=== PATIENT | male | born 1965 | race Caucasian/White ===

== ENCOUNTER → 2016-12-02 | Outpatient (CLI) | payer BC ==
[2014-06-02 20:01] VITALS: BP 141/89
--- NOTE | 2016-12-02 11:21 | RAD ---
Scrotal ultrasound, 12/02/2016: History: Right testicular swelling The right testicle measures 4.5 x 3.4 x 2.9 cm while the left testicle measures 5.0 x 2.9 x 2.4 cm. No testicular mass is seen. There is symmetric blood flow in the testicles. No epididymal abnormality is detected. There is a large right-sided hydrocele. It contains echogenic debris as well as septations. Only a small amount of fluid is present in the left scrotal sac. IMPRESSION: 1. No testicular abnormality is detected. 2. Large septated right hydrocele.
== END | disposition home or self-care (01) ==
LOC: US 10:16
PROVIDERS: ATTEND Family Medicine
DX: N50.89 Other specified disorders of the male genital organs (principal); N43.3 Hydrocele, unspecified
CPT/HCPCS: 76870